=== PATIENT | male | born 1950 | race Caucasian/White ===

== ENCOUNTER → 2019-12-01 12:27 | Outpatient (CLI) | payer MEDICARE, OTHER, SELFPAY ==
--- NOTE | 2019-12-01 | DI.US.S_ITS ---
PROCEDURE: US SCROTUM INDICATIONS: OTHER SPECIFIED DISORDERSOF THE MALE GENITAL ORGANS, possible left scrotal mass. TECHNIQUE: Real-time scanning was performed of the scrotum and testicles, with image documentation. Color and pulse Doppler interrogation was performed of both testicles. COMPARISON: None. FINDINGS: Right: Testicle is normal in size at 2.1 x 3.4 x 4.8 cm, and homogenous in echotexture. Epididymis is normal in overall size and morphology. No hydrocele or varicoceles. Overlying scrotal skin is normal in thickness. Left: Testicle is normal in size at 2.0 x 3.0 x 4.1 cm, and homogeneous in echotexture. Epididymis is normal in overall size and morphology. No hydrocele or varicoceles. Overlying scrotal skin is normal in thickness. Doppler: Color and pulse Doppler demonstrate normal and symmetric arterial flow in both testicles. IMPRESSION: Normal examination, source of left sided reported scrotal mass is not seen. Dictated by: Deshaun Go M.D. on 12/01/2019 at 16:22 Approved by: Deshaun Go M.D. on 12/01/2019 at 16:23
== END ==
PROVIDERS: PCP Family Medicine; Referring Provider Urology; Visit Provider Urology
DX: N50.89 Other specified disorders of the male genital organs (principal)
CPT/HCPCS: 76870

== ENCOUNTER → 2019-12-19 11:07 | Outpatient (CLI) | payer MEDICARE, OTHER, SELFPAY ==
--- NOTE | 2019-12-19 11:12 | DI.RAD.S_ITS ---
PROCEDURE: XR ABDOMEN 1V INDICATIONS: HISTORY OF NEPHROLITHIASIS TECHNIQUE: One view of the abdomen acquired. COMPARISON: [facility], , ABDOMEN 1 VIEW, 07/21/2007, 8:53. FINDINGS: Surgical changes and devices: Right upper quadrant cholecystectomy clips. Bowel: Bowel gas pattern is normal. Soft tissues: No suspicious abdominal calcifications. Calcification projects in the right abdomen could be within colon although technically nonspecific. Visualized solid organ contours appear normal in size. Left-sided pelvic phlebolith Bones: No suspicious bony lesions. Lower lumbar spondylosis IMPRESSION: Right abdominal calcification, technically nonspecific. If clinically warranted, CT KUB could provide better characterization Dictated by: Maxwell Josue M.D. on 12/19/2019 at 12:17 Approved by: Maxwell Josue M.D. on 12/19/2019 at 12:21
== END ==
PROVIDERS: PCP Family Medicine; Referring Provider Urology; Visit Provider Urology
DX: M47.816 Spondylosis without myelopathy or radiculopathy, lumbar region (principal); Z87.442 Personal history of urinary calculi; Z90.49 Acquired absence of other specified parts of digestive tract
CPT/HCPCS: 74018

== ENCOUNTER → 2020-03-25 14:26 | Outpatient (CLI) | payer MEDICARE, OTHER, SELFPAY ==
[2020-03-26 02:52] LABS: COVID19 Sendout Not Detected (Not Detect)
== END ==
PROVIDERS: PCP Family Medicine; Visit Provider Physician Assistant
DX: Z01.812 Encounter for preprocedural laboratory examination (principal)
CPT/HCPCS: 87635

== ENCOUNTER 2020-03-28 07:40 | Day surgery (SDC) | payer MEDICARE, OTHER, SELFPAY ==
[2020-03-22 09:00] VITALS: BMI 45.8
[2020-03-28] VITALS (14 sets, daily range): BP systolic 144–194; BP diastolic 68–112; PULSE 56–79; RESP 15–93; TEMP 36.2–37.6; O2SAT 12–97; BMI 45.8
--- NOTE | 2020-03-28 | DI.RAD.S_ITS ---
PROCEDURE: XR KNEE RT 1TO2V INDICATIONS: RIGHT TORRIE TECHNIQUE: 2 view(s) of the knee acquired. COMPARISON: [facility], CR, XR KNEE ARTHRITIC SERIES BI, 08/22/2019, 15:32. FINDINGS: Bones: Patient is status post knee joint arthroplasty. Hardware components are in expected positions. Visualized bony structures are intact. Soft tissues: Overlying postoperative changes are noted. IMPRESSION: Satisfactory appearance of the right knee total arthroplasty. Dictated by: Kofi Wright M.D. on 03/28/2020 at 12:59 Approved by: Kofi Wright M.D. on 03/28/2020 at 13:00
--- NOTE | 2020-03-28 07:55 | PM.PREOP ---
Pre-operative Note COVID-19 COVID-19 status: Negative Result date/Date tested (Pos, Neg/Pending): 03/26/20 Interval Note History & Physical reviewed/Exam performed by Physician: Yes Changes to H&P: No
--- NOTE | 2020-03-28 07:56 | PM.OP.1 ---
Operative Date/Time/Diagnoses Date of procedure: 03/28/20 Time of procedure: 12:11 Pre-op diagnosis: Right knee osteoarthritis Post-op diagnosis: same Procedure & Clinicians Procedure: Right total knee arthroplasty Same procedure as scheduled: Yes Indications: The patient presents today for total knee arthroplasty after failure of conservative treatment. The nature of the procedure including the risks and benefits, alternatives, postoperative course and expected outcome were discussed and all questions answered. Consent was obtained. Operative site confirmed and marked. Surgeon: Dayton Low Assistant Paralegal: Georgette Olvera Anesthesia Type: General, Spinal and Local Operative Notes Closure Type: primary Specimen(s): none sent Prosthetic devices, grafts, tissues, transplants, or devices: Constantino and Nephew Jennifer BCS: 7 femoral component, 6 tibial component, 9 mm BCS polyethylene tray and 32 x 9 mm round patella Applied: implant(s) Estimated Blood Loss (mL): 50 Blood products transfused: none Tourniquet time (min): 67 Procedure in detail: The patient was taken to the operative suite and placed under anesthesia. The patient was given prophylactic antibiotics prior to surgery. The patient was also given tranexamic acid, 1 g, just prior to surgery for postoperative hemostasis. The lateral knee was prepped and the joint injected with 20 mL of 1% Lidocaine with epinephrine. The knee was then prepped and draped in usual sterile fashion. The leg was exsanguinated with an Esmarch dressing and the tourniquet raised to 250 torr. A 15 cm anterior incision was made. Next a medial trivector arthrotomy was made. The extensor mechanism was marked to ensure accurate repair. Initial exposing dissection was carried out medially and laterally. The knee was then flexed and the intramedullary femoral guide amber placed. The distal femoral cut was made in 6? of valgus at the +0 position. The femoral size was measured and the appropriate cutting block was then placed and the anterior, posterior and chamfer cuts made. The intramedullary tibial alignment amber was then placed. The guide was set to remove approximately 10 mm from the less affected lateral side. The proximal tibial cut was then made with an oscillating saw. All meniscus and bony debris was then removed. Posterior femoral osteophytes removed with a curved osteotome. Flexion extension gaps were checked. No specific balancing was required other than routine exposure and removal of osteophytes. The soft tissues were then injected with a combination of 20 mL of half percent Marcaine with epinephrine and 20 mL of Exparel. The trial components were then placed. The knee was then extended and the patellar thickness was measured and a cut made removing approximately 9 mm of bone. The patella was then sized and drilled. Some excess lateral bone was excised and the patellofemoral ligament released. The knee went into full extension and flexion beyond 130?. There was excellent medial-lateral balance throughout motion. Patellar tracking was excellent. The trial components were removed and the knee was cleansed with Pulsavac irrigation and dried. The final components were cemented with high viscosity vacuum mixed bone cement with antibiotics. The joint was filled with a dilute Betadine solution. The knee was held in extension and the patellar clamped until the cement was adequately cured. The knee was then irrigated. The extensor mechanism was closed with 5 interrupted #1 Vicryl sutures and a running Quill suture at approximately 90 degrees of flexion. The joint was then injected with a combination of 1 g of tranexamic acid and 20 mL of quarter percent Marcaine with epinephrine. The subcutaneous tissue was closed with 2 0 Vicryl. The skin was closed with absorbable subcuticular sutures and surgical adhesive. An eladia dressing and Jeffery wrap were then applied. The patient tolerated the procedure well and was returned to recovery room in good condition. Complications: none Post-operative Condition: stable Disposition: PACU Plan for aftercare: [facility] Protocol
--- NOTE | 2020-03-28 09:07 | SUR.PREOP ---
Assisted patient to bathroom. Ambulatory with steady gait. Awaiting surgery.
[2020-03-28] MEDS: CEFAZOLIN VIAL 3 GM in SODIUM CHLORIDE 0.9% 100 ML 200 ML IV ×2 (10:10→18:31)
--- NOTE | 2020-03-28 10:48 | SUR.OPER ---
Supine on padded OR bed. Pillow under head, arms secured on padded armboards <90 degree abduction. Safety belt across torso. Non-operative leg secured with tape over blanket over lower leg. Operative leg secured in DeMayo/Smith positioner. Foam padded brace at thigh of operative leg.
[2020-03-28] MEDS: BUPIVACAINE 0.25% W/ EPI (PF) 40 ML, BUPIVACAINE LIPOSOME 266 MG, SODIUM CHLORIDE 0.9% ... INJ (10:56)
[2020-03-28] MEDS: BUPIVACAINE 0.25% W/ EPI (PF) 20 ML, TRANEXAMIC ACID 1,000 MG, SODIUM CHLORIDE 0.9% 10 ML INJ (10:58)
[2020-03-28] MEDS: LACTATED RINGERS 1,000 ML 42 ML IV ×2 (11:10→12:37)
--- NOTE | 2020-03-28 12:34 | SUR.PHASEI ---
Patient awake but drowsy. Drinking gingerale without any nausea. Denies pain at this time.
[2020-03-28] MEDS: LACTATED RINGERS 1,000 ML 100 ML IV ×2 (13:14→23:32)
--- NOTE | 2020-03-28 13:44 | PC.NURSE ---
Addendum entered by Asiya Eubanks R.N. 03/28/20 15:44: Patients blood pressure 180s/100s consistently.. Phoned and he gave orders to have patient take all of his blood pressure medication, these have all been given. He is resting comfortably and sleeping and bp is down 162/68. Original Note: Patient to floor around 1300. He has a eladia dressing to his r.knee. Motor to eladia drain flashing green. O drainage knee dressing, shorty wrap is present. He denies pains at this time and has feeling to below his knee. He is diabetic and his blood sugar was 110 this morning. Skin clear, he has had some cellulitis to left barnett in the past. IVF infusing LR at 100cc/hr and patient is tolerating this well.
[2020-03-28] MEDS: IBUPROFEN 400 MG TABLET PO ×3 (14:01→21:17)
[2020-03-28] MEDS: ACETAMINOPHEN 325 MG TABLET 650 MG PO ×2 (14:02→21:09)
[2020-03-28] MEDS: OXYCODONE IR 10 MG TABLET PO (14:15)
[2020-03-28] MEDS: DOXAZOSIN 4 MG TABLET 8 MG PO (15:30)
[2020-03-28] MEDS: atenoloL 50 MG TABLET PO (15:30)
[2020-03-28] MEDS: FUROSEMIDE 20 MG TABLET 40 MG PO (15:30)
[2020-03-28] MEDS: AMLODIPINE 5 MG TABLET PO (15:30)
[2020-03-28] MEDS: atenoloL 25 MG TABLET 50 MG PO (15:31)
--- NOTE | 2020-03-28 16:03 | PT.IIE ---
Current Diagnoses Other specified disorders of veins (03/28/20) Bilateral primary osteoarthritis of knee (03/28/20) Surgery Performed Operation Date: 03/28/20 09:45 Actual Procedures p Total Knee Arthroplasty(Right) - Dayton Low MD Surgical History (Last Updated 03/22/20 @ 09:26 by Ariadne Cintron RN) History of eye surgery (Acute) History of vasectomy (Acute) Hx of appendectomy (Acute) Hx of cholecystectomy (Acute) Hx of left cataract extraction (Acute) Hx of tonsillectomy (Acute) Hx of umbilical hernia repair (Acute) S/P excision of lipoma (Acute) Medical History (Last Updated 03/22/20 @ 09:34 by Ariadne Cintron RN) Edema (Acute) Enlarged heart (Acute) Gout (Acute) Hearing impaired (Acute) Heartburn (Acute) HLD (hyperlipidemia) (Acute) HTN (hypertension) (Acute) Kidney stones (Acute) Left wrist fracture (Acute) SHRUTHI on CPAP (Acute) Osteoarthritis (Acute) Pre-diabetes (Acute) Seasonal allergies (Acute) Physical Therapy Inpatient Evaluation/Re-Eval M1 PT/OT-IP Prior Functional Status Start: 03/28/20 18:13 Freq: NEEDED Status: Active Protocol: Document 03/28/20 16:03 AB (Rec: 03/28/20 18:34 AB [id number]) Medical Review Prior Functional Status Medical History Reviewed Yes Communication able to make needs known Mobility and Gait pt stated that he is modified independent with all mobilities and ambulation without AD but uses a walking stick most of the time for outdoor mobility but occasionally uses his quad cane Social History Household Members spouse Living Arrangements House Number of Floors (Floors) 3 or More Floors Number of Stairs To Enter/Railing? has 2 steps with L rail and 3 steps with R rail to enter the house has 10 steps with R rail + 1/2 wall on L to get to bedroom level Home Environment High Toilet,Walk in Shower Home Equipment Front Wheel Walker,Quad Cane, Raised Toilet Seat Without Armrests,Hand Held Shower Additional Social History Comment has a walking stick pt and daughter stated that spouse will not be able to assist pt; pt's 17 y/o grandson will assist pt as long as pt needs assistance; also stated that pt can stay at his son's house which is one level but has 3 steps to enter with R rail ascending, has a walk in shower and a regular toilet. M2 PT-IP Current Condition Start: 03/28/20 18:13 Freq: NEEDED Status: Active Protocol: Document 03/28/20 16:03 AB (Rec: 03/28/20 18:34 AB [id number]) Physical Therapy Current Condition Current Condition Evaluation Date 03/28/20 Treatment Diagnosis s/p R TKA; difficulty in walking Onset Date 03/28/20 Weight Bearing Status Weight Bearing Status Weight Bear as Tolerated Allowed Weight Bearing Amount (enter % RLE WBAT or #) (%) M3 PT-IP Subjective Start: 03/28/20 18:13 Freq: NEEDED Status: Active Protocol: Document 03/28/20 16:03 AB (Rec: 03/28/20 18:34 AB [id number]) Subjective Physical Therapy Visit Type Type Initial Evaluation Visit Start Time 16:03 Visit Stop Time 17:10 Total Visit Minutes 67 Number of BOTTOM BRUSHER Visits 0 Physical Therapy Visit Comments Patient Comments agreeable to do PT Therapy Pain Assessment Pain When Pain Assessed At Rest Pain Present Pain Present Pain Reported Location Bilateral Knee Intensity 5 Scale Used Numeric (0 - 10) Pain Management Techniques Re-positioning,Timing of Activity with Medications M4 PT-IP Mobility and Gait Start: 03/28/20 18:13 Freq: NEEDED Status: Active Protocol: Document 03/28/20 16:03 AB (Rec: 03/28/20 18:34 AB [id number]) PT-Bed Mobility Assessment Supine to Sit Supine to Sit Contact Guard Assistance, Bedrails PT-Transfer Assessment Sit to and From Stand Sit to and from Stand Moderate Assistance,1 Person Assistance,Use of Upper Extremities Equipment Transfer Assistive Device Gait Belt,Front Wheeled Walker Orthotic/Prosthetic Devices or Brace: No Transfers Transfer Destination Toilet Transfer Technique ambulated using FWW Transfer Ability Level of Assist Moderate Assistance,1 Person Assistance,Use of Upper Extremities Comments Mobility Comments BP: 166/84 completed supine to sit using bed rail. pt presents difficulty completing task and requires increase time to complete. pt stated that he has a headboard that he uses to assist him with bed mobility. informed pt and daughter regarding benefit of having a bedcane. pt completed sit to stand mod A and cues. requires cues and assist for R knee stability as R knee tends to give out on pt. pt requested to use the toilet and completed ambulation using FWW mod A and cues and assist to stabilize R knee and cues for quads activation. completed sit to stand from the toilet using grab bar mod A. ambulated to the chair using FWW mod A. pt is worried about getting up from the chair. instructed pt on sit to stand techniques and completed with mod A and cues. pt agreed to sit up on chair. call light and table placed within reach. informed pt and daughter regarding stair climbing concerns and how R knee tends to give out on pt. informed pt that he might have to put a ramp in and stay at his son's house for now until he is strong enough to do steps. pt 's daughter messaged that his brother can build a ramp between today and tomorrow. set up caregiver training with pt's daughter: pt's preciouson to come in with pt's daughter at ~ 1030 to 11 am for training. Gait Assessment Gait Gait Assistance Required: Moderate Assistance Distance (Feet) 10 Able to Maintain Weight Bearing Status Yes During Gait Assistive Devices Assistive Device Gait Belt,Front Wheeled Walker Orthotic/Prosthetic Devices or Brace: No Gait Deviations General Gait Pattern Antalgic,Decreased Stride Length,Decreased Feet Clearance,Step-to Gait Factors Limiting Gait Function Factors Limiting Gait Function Decreased Activity Tolerance, Decreased Strength,Limited Range of Motion,Pain,Poor Balance,Poor Safety Awareness Comments Gait Comments pls refer to mobility section for details PT-Balance Assessment Sitting Balance and Reactions Static Sitting Balance Ability Good Dynamic Sitting Balance Ability Good Standing Balance and Reactions Static Standing Balance Ability Fair Dynamic Standing Balance Ability Poor Device Used FWW M5 PT-IP Objective Assessments Start: 03/28/20 18:13 Freq: NEEDED Status: Active Protocol: Document 03/28/20 16:03 AB (Rec: 03/28/20 18:34 AB [id number]) Orientation Orientation/Cognition Level of Alertness Alert Orientation Name,Place,Situation Language Function Ability No Deficits Noted Gross Range of Motion Lower Extremity ROM Assessment Right Impaired Impairments R knee flexion: ~ 50 deg R knee extension: lacking ~ 20 deg to neutral Strength Lower Extremity Strength Assessment Right Impaired Hip 3+/5 Knee 3-/5 Coordination Assessment Gross Coordination Gross Coordination WNL Sensation Assessment Sensation Gross Sensation WNL Muscle Tone Muscle Tone WNL Yes M6 PT-IP Treatment Start: 03/28/20 18:13 Freq: NEEDED Status: Active Protocol: Document 03/28/20 16:03 AB (Rec: 03/28/20 18:34 AB [id number]) Physical Therapy Treatment Exercises Exercises Quad Sets,Heel Slides Education Education Provided Precautions,Weight Bearing Status,Post-Op Packet,Safety M7 PT-IP Assessment and Plan Start: 03/28/20 18:13 Freq: NEEDED Status: Active Protocol: Document 03/28/20 16:03 AB (Rec: 03/28/20 18:34 AB [id number]) PT Summary Assessment and Plan Potential Rehabilitation Potential Good Status of Condition at Evaluation Evolving Summary Impairments Pain,ROM,Strength,Balance,Bed Mobility,Transfers,Gait, Activity Tolerance Assessment Summary pt s/p R TKA completed this morning. pt currently requiring mod A with mobility with (+) R knee giving out on pt requiring assist for stability and cues for quads activation. pt has steps to get into the house and appropriateness on doing stair climbing training depending on progress with R knee strength/stability. pt plans to go home with assist. Son can put a ramp in for pt but at this time does not have a ramp yet. will have to continue to assess progress. set up caregiver training tomorrow 03/29 between 1030 and 11 am. Goals Bed Mobility Goal Standby Assistance Transfer Goal Standby Assistance,Front Wheeled Walker Gait Goal Standby Assistance,Front Wheel Walker Gait Distance 150 Other Goals up/down 10 steps R rail and 2 steps L rail CGA Days to Meet Goals 5 Frequency of Treatment Frequency Of Treatment Twice a Day Treatment Plan Physical Therapy Treatment Plan Bed Mobility Training,Transfer Training,Gait Training, Therapeutic Exercise,Balance Retraining,Post Op Education, Discharge Planning,Hot or Cold Pack,Neuromuscular Re-ed, Coordination Retraining,Manual Therapy Other Recommendations and Next Treatment caregiver trainin03/29/20 1030/1100 am Recommendations To Nursing Amount of Assist Needed 1 Person Assist Discharge Recommendations PT Discharge Recommendations Home with 24/7 Assist,Home Health,SNF Rehab Other Discharge Recommendations depending on progress: SNF vs home with assist and homehealth PT Transportation Needs at Discharge Private Vehicle,Wheelchair/ Cabulance
--- NOTE | 2020-03-28 18:32 | PC.NURSE ---
ADRI Shift. pt AO, pleasant, and receptive to care. ARACELI and YAMILA wrap to right knee, +2 pitting edema bilateral LE, pt states that is his baseline. CMS in tact and lifting RLE (not against resistance). 4-6/10 pain being managed with oxy, Tylenol, and Advil. BM this AM and urinating in urinal. Up with PT and for transfers, tolerating well. Left hand infusing LR at 100ml/hr with intermittent ABX and tolerating well. pt reporting he is pre-diabetic but H&P states type 2 DM, pt states he does not check blood sugars at home. We initiated checking CBG and pt is 146 at dinner. BP was elevated at start of shift. AM shift nurse received phone orders to administer all HTN medications. BP decreased to 162/68 post-HTN medications at approximately 1600. PT worked with pt around 1640 and BP elevated to 180/102, pt denied symptoms. When PT was completed and pt rested in chair for approximately 40 minutes, I re-checked BP and pt was at 152/77. pt states he has a high tolerance for pain and reporting 4-6/10 throughout shift which is responding appropriately to PO medications. IS at bedside and pt utilizing.
[2020-03-28] MEDS: ATORVASTATIN 20 MG TABLET 40 MG PO (21:09)
[2020-03-28] MEDS: ASPIRIN EC 81 MG TABLET PO (21:09)
[2020-03-29] MEDS: IBUPROFEN 400 MG TABLET PO ×3 (01:09→08:06)
[2020-03-29] MEDS: CEFAZOLIN VIAL 3 GM in SODIUM CHLORIDE 0.9% 100 ML 200 ML IV (02:20)
[2020-03-29 05:48] LABS: Hemoglobin 13.9 g/dL (13.5-17.5)
[2020-03-29] MEDS: PANTOPRAZOLE 20 MG TABLET PO (05:59)
[2020-03-29 06:12] VITALS: BP 140/74; PULSE 96; RESP 18; TEMP 36.6; O2SAT 95
--- NOTE | 2020-03-29 07:22 | PM.PNPO.1 ---
Subjective Subjective Date Patient Seen: 03/29/20 Time Patient Seen: 07:22 Interval history: The patient is doing well. He slept well overnight. Pain is well controlled. Exam Vital Signs (past 8 hours): - 03/29/20 06:12 Temperature 97.9 F Pulse Rate 96 H Respiratory Rate 18 Blood Pressure 140/74 Pulse Oximetry 95 Oxygen Delivery Method Room Air,CPAP Oxygen Flow Rate 0 Narrative Exam Narrative: The dressing is clean and dry. Leg is neurovascularly intact. Expected swelling. Objective Labs Result Diagrams: 03/29/20 05:15 Labs: Laboratory Results - last 24 hr 03/29/20 05:15 Hgb 13.9 Hct 40.0 L Assessment & Plan Post-op Postoperative Procedures: Procedures Operation Date: 03/28/20 09:45 Actual Procedures Side Surgeon p Total Knee Arthroplasty Right Dayton Low MD Postoperative day: 1 Postoperative status narrative: The patient is progressing as expected after his total knee arthroplasty. His blood pressure control has significantly improved. Plan to discharge home today. He will resume his normal blood pressure medication. Follow-up in 2 weeks. [facility] protocol. Time Spent With Patient Time with patient: less than 15 minutes
[2020-03-29 07:40] VITALS: BP 155/79; PULSE 66; RESP 16; TEMP 37.1; O2SAT 92
[2020-03-29] MEDS: FUROSEMIDE 20 MG TABLET 40 MG PO (08:06)
[2020-03-29] MEDS: OXYCODONE IR 10 MG TABLET PO (08:07)
[2020-03-29] MEDS: ASPIRIN EC 81 MG TABLET PO (08:07)
[2020-03-29] MEDS: ACETAMINOPHEN 325 MG TABLET 650 MG PO (08:07)
[2020-03-29] MEDS: DOCUSATE 100 MG CAPSULE PO (08:07)
[2020-03-29] MEDS: allopurinoL 300 MG TABLET PO (08:08)
[2020-03-29] MEDS: IRBESARTAN 150 MG TABLET PO (08:08)
[2020-03-29] MEDS: DOXAZOSIN 4 MG TABLET 8 MG PO (08:10)
--- NOTE | 2020-03-29 08:41 | CM.DANOTE ---
Addendum entered by Charley Li LPN 03/29/20 08:58: Met with pt as planned and introduced self and role. Discussed pt's shifting d/c plan: our kids have taken over: I am now going to my son's house in [place]; only a couple of stairs and they went out and got a raised toilet seat for me. He states it is his grandson Haider and daughter Lanie who will be here for the caregiver training at about 1100. P: home to son's house in [place] today after caregiver training. INSPECTOR FILTER TIP who will see pt today is updated. Original Note: Discharge Planning/Care Management DCP: assessment: case received, EMR reviewed. DC order noted. Pt is a 69 year old male who admitted yesterday for a planned R TKA. Surgeon: Dr. Low Payer: Medicare and En[employer]. Pt did work with PT Ricarda yesterday and barrier to returning home is stairs. Ricarda plans to do caregiver training today with pt's family. Grandson will be putting in a ramp to the home. Will check in with pt now and follow prn. P: anticipate d/c later today after careiver training. OUTPT PT is planned. CM Discharge Assessment Start: 03/29/20 08:40 Freq: Status: Active Protocol: Document 03/29/20 08:40 ITV (Rec: 03/29/20 08:41 ITV [id number]) Discharge Planning Assessment Advance Directives? No History Provided By Patient,Medical Record Prior Living Arrangements House Household Members spouse Independent with ADL's Yes Is patient alert and oriented? Yes Review Status In Process Pre-Anesthesia Assessment Start: 03/22/20 09:00 Freq: Status: Active Protocol: Document 03/22/20 09:00 CAB (Rec: 03/22/20 09:43 CAB [id number]) Pre-Anesthesia Assessment PAC Comment As of 03/26/20, pre-op labs/EKG from PCP not available from surgeon. Preferred Name Beau or Braulio Patient Information Reviewed Via Phone Assessment Assessment Completed With Patient Comment Labs/EKG w/PCP 03/21/20 COVID- 19 screen 03/25/20 @ [facility]-not detected Primary Care Provider Alphonso Lehman Medical Clearance Received Yes Seen Specialist in Last 12 Months Yes Specialist Seen Orthopedist,Urologist Primary Language Persian Insole Filler Required No Height 175.26 cm Weight 140.614 kg Body Mass Index (BMI) 45.8 Hearing Ability Normal Visual Impairment No Limitations Visual Assist None Dentition Type Teeth, Natural Present,Teeth, Missing Barriers to Learning Cognitive/Verbal Other Aids No Hx Anesthesia Reactions No Hx Family Anesthesia Reaction No Hx Malignant Hyperthermia No Hx Blood Transfusions No Anesthesia Review Requested No alcohol intake former Smoking Status Former smoker Tobacco type smokeless tobacco how long ago did patient quit smoking Quit smoking/chew tobacco 15 years ago Substance Use Type does not use Pain Present Pain Reported Musculoskeletal Symptoms Abnormal Gait,Back Pain, Difficulty Walking,Joint Pain, Joint Stiffness,Myalgias History of Falling (Recent or History of Yes ) Patient is completely paralyzed or No completely immobile Prosthesis or Orthotic Device Cane Mental Status Oriented to own ability Is patient on oxygen? No Does patient have SHAH/SOB Yes Hx Sleep Apnea Yes CPAP/BIPAP use prescribed and used routinely Will Bring CPAP/BIPAP DOS Yes Currently Taking a Beta Concepcion Yes: Atenolol Can You Climb a Flight of Stairs Without No SOB Hx Chest Pain No Hx SOB Yes Hx Syncope or Dizziness No Anti-Coagulant Therapy No Has a Nursing Assoc No Cardiac Testing No Hx Pacemaker/ICD No Pacemaker Rep Required? No Cardiac Clearance Received Not Applicable Diet Type At Home Regular dysphagia No Gastrointestinal Symptoms Reflux Genitourinary Symptoms Change in Urinary Stream Bladder Pattern Frequency Urinary Catheter Present No Hx Urinary Self Catheterization No Diabetes No: Pre-diabetes HgbA1C 6.4 Hx Drug Resistant Organism No Presence of External or Internal Medical Yes: CPAP Devices Have you had any close contact with No someone diagnosed with COVID-19? Evaluation/Screening for possible COVID- Yes 19 infection completed? Marital Status Lives With spouse Prior Living Arrangements House Number of Floors (Floors) Two Floors Support System Spouse Does the Patient Have Assistance After Yes Surgery Patient Discharge Plan Description Return Home Comment Pt advised possible day surgery Feels Safe in Current Environment Yes Been Physically Hurt or Threatened By a No Person in Current Environment Do you have thoughts of harming yourself None or others? Are you currently considering suicide? No Do you have a plan to hurt yourself or No Plan others? Do You Have Any Spiritual Beliefs That No May Affect Your HC Choices? Do You Have Any Cultural Practices That No May Affect Your HC Choices? Comment Sikhism Who Can We Speak to About Patient's Care Family, friends Identifying Code for Release of Patient Declines to issue Information Health Care Proxy/Next of Kin Kailey () Health Care Proxy Emergency Contact Name Kailey () Emergency Contact Advance Directives? No Power of Line Erector No PAC Instructions Durable medical equipment, Medications to take/avoid, Nasal antibiotic,No ETOH/ petroleum product on skin DOS, Pre-surgical wash,Sensory aids ,Sturdy shoes/comfortable clothes,Do not bring valuables and remove jewelry
--- NOTE | 2020-03-29 09:09 | PC.NURSE ---
Patient is sitting up in the chair, he is one person assist. Eladia dressing is cdi with shorty wrap dressing on top of eladia. Motor to dressing is flashing green. Patients cms and pppx2. Denies any numbness or tingling to r.extremity. Patient has been discharged and will go home this mid afternoon.
[2020-03-29 09:20] VITALS: TEMP 36.4
--- NOTE | 2020-03-29 11:18 | PT.IPTN ---
Current Diagnoses Obstructive sleep apnea (adult) (pediatric) (03/28/20) Essential (primary) hypertension (03/28/20) Other specified disorders of veins (03/28/20) Unilateral primary osteoarthritis, right knee (03/28/20) Prediabetes (03/28/20) Surgery Performed Operation Date: 03/28/20 09:45 Actual Procedures p Total Knee Arthroplasty(Right) - Dayton Low MD Physical Therapy Treatment Note M2 PT-IP Current Condition Start: 03/28/20 18:13 Freq: NEEDED Status: Discharge Protocol: Document 03/28/20 16:03 AB (Rec: 03/28/20 18:34 AB [id number]) Physical Therapy Current Condition Current Condition Evaluation Date 03/28/20 Treatment Diagnosis s/p R TKA; difficulty in walking Onset Date 03/28/20 Weight Bearing Status Weight Bearing Status Weight Bear as Tolerated Allowed Weight Bearing Amount (enter % RLE WBAT or #) (%) M3 PT-IP Subjective Start: 03/28/20 18:13 Freq: NEEDED Status: Discharge Protocol: Document 03/29/20 10:33 SP (Rec: 03/29/20 14:09 SP [id number]) Subjective Physical Therapy Visit Type Type Treatment Note Visit Start Time 10:33 Visit Stop Time 11:18 Total Visit Minutes 45 Notes Daughter and grandson in room when arrived. Grandson completed caregiver training during tx, new plan to go home with him due to only 3 stairs 1 HR to manage right now than 15 total at his home. Number of PUBLIC HEALTH AIDES TEACHER Visits 1 Physical Therapy Visit Comments Patient Comments Pt agreeable to working with therapy. Therapy Pain Assessment Pain When Pain Assessed During Mobility Pain Present Pain Present Pain Reported Location Bilateral Knee Intensity 4 Scale Used R knee, improved as mobilized. Pain Management Techniques Re-positioning,Timing of Activity with Medications M4 PT-IP Mobility and Gait Start: 03/28/20 18:13 Freq: NEEDED Status: Discharge Protocol: Document 03/29/20 10:33 SP (Rec: 03/29/20 14:09 SP [id number]) PT-Transfer Assessment Sit to and From Stand Sit to and from Stand Contact Guard Assistance, Minimal Assistance,Moderate Assistance,1 Person Assistance ,Use of Upper Extremities Equipment Transfer Assistive Device Gait Belt,Front Wheeled Walker Orthotic/Prosthetic Devices or Brace: No Transfers Transfer Destination Bed,Chair,Toilet Transfer Technique ambulated using FWW Transfer Ability Level of Assist Contact Guard Assistance, Minimal Assistance,1 Person Assistance,Use of Upper Extremities Comments Mobility Comments Pt seated in chair when arrived. Pt stated will be going home with mata and only has 3 steps onto deck to enter his home with 1 HR and can use his SPC if needed. Mata completed caregiver training including donning gait belt and all physical assist required during mobility. Sit to stand from chair Mod A of 1 person, cued use of BUE on chair arms and RLE out front intially. Cued for quad facilitation decrease risk of knees buckling once in standing use of FWW for support. Pt ambulated using FWW chair to toilet 8 ft CGA then use of L grab bar (as has bathroom counter on L to use at [facility]ara cause[place] for self support) and FWW Min A to slow descend to toilet. Min A to stand grab bar and FWW. Pt ambulated to chair in hallway approx 20 ft and CGA to sit in w/c. Pt was wheeled down in w /c to stairs. Pt ascend/ descended 3 stairs R HR and SPC in LUE with CGA mata provided, cuing initally for sequencing LLE leading up/ RLE leading down with good demonstration. Pt then walked further down hallway approxx 100 ft before required seated rest due to decreased activity tolerance and strength which is further that would have to at his mata causey. Pt wheeled in w/c to room, sit to stand CGA- Min A from w/c walked further into room 15 ft using FWW to chair CGA during slow descent into chair. Pt had all needs and call light in reach before left. Gait Assessment Gait Gait Assistance Required: Contact Guard Assist Distance (Feet) 100 Able to Maintain Weight Bearing Status Yes During Gait Assistive Devices Assistive Device Gait Belt,Front Wheeled Walker Orthotic/Prosthetic Devices or Brace: No Gait Deviations General Gait Pattern Antalgic,Decreased Stride Length,Decreased Feet Clearance Factors Limiting Gait Function Factors Limiting Gait Function Decreased Activity Tolerance, Decreased Strength,Limited Range of Motion,Pain,Poor Balance Comments Gait Comments See mobility comments. Stair Climbing Assessment Evaluation Level of Assist On Stairs Contact Guard Assistance,1 Person Assistance Devices Stair Climbing Assistive Devices Straight Cane,Right Railing Technique/Endurance Stair Climbing Direction Ascend and Descend Stair Climbing Technique Step to Step Number of Steps Climbed 3 Stair Climbing Set # Repetitions (reps) 1 Comments Stair Climbing Comments See mobility comments, 3 stairs to assimulate mata' s enterance onto [employer], going to his home upon DC. PT-Balance Assessment Sitting Balance and Reactions Static Sitting Balance Ability Good Dynamic Sitting Balance Ability Good Standing Balance and Reactions Static Standing Balance Ability Fair Dynamic Standing Balance Ability Fair Device Used FWW M5 PT-IP Objective Assessments Start: 03/28/20 18:13 Freq: NEEDED Status: Discharge Protocol: Document 03/28/20 16:03 AB (Rec: 03/28/20 18:34 AB [id number]) Orientation Orientation/Cognition Level of Alertness Alert Orientation Name,Place,Situation Language Function Ability No Deficits Noted Gross Range of Motion Lower Extremity ROM Assessment Right Impaired Impairments R knee flexion: ~ 50 deg R knee extension: lacking ~ 20 deg to neutral Strength Lower Extremity Strength Assessment Right Impaired Hip 3+/5 Knee 3-/5 Coordination Assessment Gross Coordination Gross Coordination WNL Sensation Assessment Sensation Gross Sensation WNL Muscle Tone Muscle Tone WNL Yes M6 PT-IP Treatment Start: 03/28/20 18:13 Freq: NEEDED Status: Discharge Protocol: Document 03/29/20 10:33 SP (Rec: 03/29/20 14:09 SP [id number]) Physical Therapy Treatment Exercises Exercises Ankle Pumps,Seated Knee Flexion/Extension Education Education Provided Precautions,Weight Bearing Status,Post-Op Packet,Safety M7 PT-IP Assessment and Plan Start: 03/28/20 18:13 Freq: NEEDED Status: Discharge Protocol: Document 03/29/20 10:33 SP (Rec: 03/29/20 14:09 SP [id number]) PT Summary Assessment and Plan Potential Rehabilitation Potential Good Status of Condition at Evaluation Evolving Summary Impairments Pain,ROM,Strength,Balance,Bed Mobility,Transfers,Gait, Activity Tolerance Assessment Summary pt currently requiring Mod A initally sit to stand then decrease to CGA as tx progressed with mobility, cued R knee flexion during advancement for increase normal patterning. Ascend/ descend 3 stairs R HR andSPC in LUE cGA provided by mata who will assist him at his home until can manage 15 stairs to return to his home. Pt is ok to go when medically stable. Out patient rebab recommended and patient stated will call and set up for next week and understands post op exercises in the meantime. Goals Bed Mobility Goal Standby Assistance Transfer Goal Standby Assistance,Front Wheeled Walker Gait Goal Standby Assistance,Front Wheel Walker Gait Distance 150 Other Goals up/down 10 steps R rail and 2 steps L rail CGA Days to Meet Goals 5 Frequency of Treatment Frequency Of Treatment Twice a Day Treatment Plan Physical Therapy Treatment Plan Bed Mobility Training,Transfer Training,Gait Training, Therapeutic Exercise,Balance Retraining,Post Op Education, Discharge Planning,Hot or Cold Pack,Neuromuscular Re-ed, Coordination Retraining,Manual Therapy Other Recommendations and Next Treatment LE exercises, bed mobility LE Focus self with gait belt support, gait further distance, stairs has 15 to complete 1 HR before returns to his home. Recommendations To Nursing Amount of Assist Needed 1 Person Assist Discharge Recommendations PT Discharge Recommendations Home with Assistance, Outpatient PT Transportation Needs at Discharge Private Vehicle
[2020-03-29 11:30] VITALS: BP 145/67; PULSE 66; RESP 16; TEMP 36.7; O2SAT 93
== END 2020-03-29 12:46 | disposition home or self-care (01) ==
LOC: OR 11:50 → AC 11:51
PROVIDERS: PCP Family Medicine; Referring Provider Orthopaedic Surgery; Visit Provider Orthopaedic Surgery
PROC: 0SRC0JZ Replacement of Right Knee Joint with Synthetic Substitute, Open Approach (ICD-10-PCS; CPT 27447; principal; 2020-03-28 09:45)
DX: M17.11 Unilateral primary osteoarthritis, right knee (principal); I87.8 Other specified disorders of veins; I10 Essential (primary) hypertension; G47.33 Obstructive sleep apnea (adult) (pediatric); R73.03 Prediabetes
CPT/HCPCS: 27447; 36415; 73560; 82962; 85014; 85018; 97116; 97162; 97530; C1776; C9290; J0690; J2250; J2405; J2704; J3010

== ENCOUNTER 2021-11-13 11:57 | Emergency (ER) | payer MEDICARE, OTHER, SELFPAY ==
[2020-03-28 13:03] VITALS: BMI 45.8
[2021-11-13 12:23] VITALS: BP 160/73; PULSE 80; RESP 19; TEMP 36.6; O2SAT 99; BMI 46.5
[2021-11-13 12:58] LABS: COVID19 -Nasal RAPID Negative (Negative)
--- NOTE | 2021-11-13 13:41 | ED.WOUNDLAC ---
HPI - Wound/Laceration General Chief Complaint: Wound/Laceration Stated Complaint: cant walk, shaky, weak Time Seen by Provider: 11/13/21 12:52 Source: patient Mode of arrival: Family Vehicle History of Present Illness HPI narrative: Patient is a 70-year-old male. Has chronic lower extremity swelling and chronic wounds. He has had this issues for months now. Has been on antibiotics with only minimal improvement. Has a follow-up with wound care in 2 days from now. Is on diuretics but states that he only takes the diuretic when he is going to be at home because it causes him to urinate. No diagnosis of heart failure. No prior diagnosis of diabetes. Is here for evaluation because this morning he became very shaky and weak and had discomfort in his thighs with right being greater than left. Has not tried anything for the symptoms prior to arrival. Related Data Home Medications Medication Instructions Recorded Confirmed allopurinol 300 mg tablet 300 mg PO DAILY #0 02/26/10 03/28/20 aspirin 81 mg tablet,delayed 81 mg PO DAILY #0 02/26/10 03/28/20 release atenolol 50 mg tablet 50 mg PO BEDTIME #0 02/26/10 03/28/20 Resmed Airsense 10 CPAP #1 ea 02/10/19 03/29/20 amlodipine 5 mg tablet 5 mg PO BEDTIME 03/22/20 03/28/20 atorvastatin 40 mg tablet 40 mg PO BEDTIME 03/22/20 03/28/20 doxazosin 8 mg tablet 8 mg PO DAILY 03/22/20 03/28/20 furosemide 20 mg tablet 40 mg PO QAM 03/22/20 03/28/20 indomethacin 25 mg capsule 25 mg PO TID PRN 03/22/20 03/28/20 irbesartan 150 mg tablet 150 mg PO DAILY 03/22/20 03/28/20 omeprazole 20 mg capsule,delayed 20 mg PO DAILY 03/22/20 03/28/20 release Previous Rx's Medication Instructions Recorded oxycodone 5 mg tablet 5 mg PO Q4H PRN #60 tab 03/28/20 triamcinolone acetonide 0.1 % 1 applic TOPICAL BID #30 g 11/13/21 topical cream Allergies Allergy/AdvReac Type Severity Reaction Status Date / Time adhesive tape Allergy Severe Blisters, Verified 11/13/21 12:23 burn Review of Systems Constitutional Constitutional: Reports fatigue, Denies fever(s), Denies headache(s) and Reports lethargy ENT Ears, Nose, Mouth, and Throat: Denies headache(s) Cardiovascular Cardiovascular: Denies chest pain and Denies dyspnea Respiratory Respiratory: Denies dyspnea Gastrointestinal Gastrointestinal: Denies abdominal pain, Denies nausea and Denies vomiting Musculoskeletal Musculoskeletal: Reports system reviewed and no additional complaints, except as documented and Reports as per HPI Integumentary/Breasts Skin/Breast: Reports system reviewed and no additional complaints, except as documented and Reports as per HPI Neurologic Neurologic: Denies headache(s) Endocrine Endocrine: Reports fatigue Hematologic/Lymphatic On Anticoagulants: No Allergic/Immunologic Allergic/Immunologic: Reports system reviewed and no additional complaints, except as documented Patient History Medical History Edema Enlarged heart Gout Hearing impaired Heartburn HLD (hyperlipidemia) HTN (hypertension) Kidney stones Left wrist fracture SHRUTHI on CPAP Osteoarthritis Pre-diabetes Seasonal allergies Surgical History History of eye surgery History of vasectomy Hx of appendectomy Hx of cholecystectomy Hx of left cataract extraction Hx of tonsillectomy Hx of umbilical hernia repair S/P excision of lipoma Social History household members: spouse Smoking Status: Former smoker alcohol intake: former Smoking Status: Former smoker alcohol intake frequency: 0-2 drinks per day Substance Use Type: does not use Exam Initial Vital Signs Initial Vital Signs: Vital Signs Temperature 97.9 F 11/13/21 12:23 Pulse Rate 80 11/13/21 12:23 Respiratory Rate 19 11/13/21 12:23 Blood Pressure 160/73 H 11/13/21 12:23 Pulse Oximetry 99 11/13/21 12:23 HENMT Head: normal to inspection and normocephalic Resp Effort & Inspection: normal respiratory effort Cardio Rate: regular rate GI Inspection: normal to inspection Skin Other: Patient has bilateral changes of his lower extremities consistent with chronic venous stasis changes. The right lower extremity is weeping. There is erythema but it appears to be equal bilateral. No change in temperature between the 2 extremities. Neuro General: patient alert, patient awake, patient oriented x3 and moves all extremities Extrem Other: Patient with circumferential swelling bilateral lower extremities extending from his toes to his upper thighs. His upper extremities are unremarkable. Patient with some discomfort of his quadriceps muscles bilateral upper extremities. Course Orders Ordered: ED Orders 11/13/21 12:37 COVID19 -Nasal swab/Pre-Proc Stat 11/13/21 13:30 Complete Blood Count AUTO DIFF Stat Comprehensive Metabolic Panel Stat Lipase Stat NT-proBNP (BNP-Adult 18+) Stat 11/13/21 14:15 Consult to INSTITUTIONAL ASSET MANAGER - Pyrotechnics Press Tender Stat Vital Signs Vital signs: Vital Signs - 8 hr 11/13/21 12:23 11/13/21 15:26 Temperature 97.9 F Pulse Rate 80 91 H Respiratory Rate 19 Blood Pressure 160/73 H 196/88 H Pulse Oximetry 99 95 MDM - Wound/Laceration Lab Data Attestation: I reviewed the patient's lab results. Result diagrams: 11/13/21 13:30 11/13/21 13:30 Labs: Lab Results 11/13/21 11/13/21 11/13/21 Range/Units 12:37 13:30 13:30 WBC 16.9 H (4.5-11.0) X10^3/uL RBC 4.65 (4.5-5.9) X10^6/uL Hgb 14.1 (13.5-17.5) g/dL Hct 41.5 (41-53) % MCV 89.4 (80-100) fL MCH 30.3 (26-34) PG MCHC 33.9 (30-36) % RDW 14.7 (11.6-14.8) % Plt Count 163 (150-400) X10^3/uL Neut % (Auto) 90.7 H (50-75) % Lymph % (Auto) 2.4 L (25-40) % [place] % (Auto) 6.5 (3-14) % Eos % (Auto) 0.0 L (2-4) % Baso % (Auto) 0.4 (0-2) % Neut # (Auto) 18490 H (4256-5802) /uL Lymph # (Auto) 400 L (8364-8226) /uL [place] # (Auto) 1100 H (0-900) /uL Eos # (Auto) 0 (0-450) /uL Baso # (Auto) 100 (0-100) /uL Sodium 143 (137-145) mmol/L Potassium 3.8 (3.4-5.1) mmol/L Chloride 104 (98-107) mmol/L Carbon Dioxide 29 (22-32) mmol/L BUN 19 (9-20) mg/dL Creatinine 1.02 (0.66-1.25) mg/dL Estimated GFR > 60.0 (>60) mL/min BUN/Creatinine Ratio 18.6 (6-22) Glucose 175 H (80-110) mg/dL Calcium 10.0 (8.4-10.2) mg/dL Total Bilirubin 1.7 H (0.2-1.3) mg/dL AST 30 (17-59) IU/L ALT 31 (<50) IU/L Alkaline Phosphatase 79 (38-126) U/L NT-Pro-B Natriuret Pep 656 H (<125) pg/mL Total Protein 7.2 (6.3-8.2) g/dL Albumin 4.4 (3.5-5.0) g/dL Globulin 2.8 (1.7-4.1) g/dL Albumin/Globulin Ratio 1.6 (1.0-2.8) Lipase 54 (23-300) U/L SARS-CoV-2 (PCR) Negative (Negative) MDM Narrative Medical decision making narrative: The skin changes on his lower extremities her consistent with venous stasis changes. I did consider cellulitis however given his presentation and his exam the changes in lower extremities are more consistent with a dermatitis rather than a cellulitis. He has an appointment with wound care in 2 days from now. The changes in his lower extremities have been there for months. He has been on oral antibiotics in the past with only minimal if any improvement. He is afebrile. Does have a leukocytosis however there is no signs of any pneumonia, cellulitis, no urinary symptoms. No coughing. Unsure the exact etiology of this however I feel that we should hold on any antibiotics for now and have him follow-up with wound care and also his primary doctor. I did discuss the elevation in the white blood cell count with the patient and how we are going to hold on antibiotics. He was given return precautions and follow-up instructions. He expressed understanding and agreement. Discharge Plan Departure Patient Disposition: Home Clinical Impression: Stasis dermatitis Activity Restrictions/Additional Instructions: Continue to take all of your medications as directed to include your diuretic like we discussed. I do recommend that you follow-up with wound care that is scheduled for Thursday. I am going to provide you a prescription for a topical corticosteroid. This type of treatment has shown to be helpful with the dermatitis similar to what you have. Please use it as directed. If after starting this medication your symptoms worsen than stopped using the medication. You may want to discuss potentially seeing Dermatology but this is a discussion to have with the that the food safety field specialist or your primary provider. Return to the emergency department for any new or worsening symptoms. Prescriptions: New triamcinolone acetonide 0.1 % cream 1 applic topical BID Qty: 30 2RF No Action aspirin 81 mg Tablet,Delayed Release (Dr/Ec) 81 mg PO DAILY Qty: 0 0RF allopurinol 300 mg Tablet 300 mg PO DAILY Qty: 0 0RF atenolol 50 mg Tablet 50 mg PO BEDTIME Qty: 0 0RF atorvastatin 40 mg Tablet 40 mg PO BEDTIME 0RF amlodipine 5 mg Tablet 5 mg PO BEDTIME 0RF doxazosin 8 mg Tablet 8 mg PO DAILY 0RF indomethacin 25 mg Capsule 25 mg PO TID PRN (Reason: Gout flare ) 0RF omeprazole 20 mg Capsule,Delayed Release(Dr/Ec) 20 mg PO DAILY 0RF furosemide 20 mg Tablet 40 mg PO QAM 0RF irbesartan 150 mg Tablet 150 mg PO DAILY 0RF oxycodone 5 mg tablet 5 mg PO Q4H PRN (Reason: pain) Qty: 60 0RF Rx Instructions: May take 2 tabs, 10 mg, if needed. (DME) Resmed Airsense 10 CPAP Qty: 1 0RF Dose Instruction: As directed Label Comments: Pressure: 8-16 cmH2O DME: [facility] Rx Instructions: As directed Referrals: Ran Holt MD [Primary Care Provider] -
[2021-11-13 14:00] LABS: Add Manual Diff / Slide Review NO; Basophils Absolute Auto 100 /uL (0-100); Basophils Percent Auto 0.4 % (0-2); Eosinophils Absolute Auto 0 /uL (0-450); Hematocrit 41.5 % (41-53); Hemoglobin 14.1 g/dL (13.5-17.5); Lymphocytes Absolute Auto 400 /uL (1100-4500); Lymphocytes Percent Auto 2.4 % (25-40); Mean Corpuscular HGB Conc 33.9 % (30-36); Mean Corpuscular Hemoglobin 30.3 PG (26-34); Mean Corpuscular Volume 89.4 fL (80-100); Monocytes Absolute Auto 1100 /uL (0-900); Monocytes Percent Auto 6.5 % (3-14); Neutrophils Absolute Auto 15400 /uL (1500-7000); Neutrophils Percent Auto 90.7 % (50-75); Platelet Count 163 X10^3/uL (150-400); Red Blood Cell Count 4.65 X10^6/uL (4.5-5.9); Red Cell Distribution Width 14.7 % (11.6-14.8); White Blood Cell Count 16.9 X10^3/uL (4.5-11.0)
[2021-11-13 14:07] LABS: Alanine Aminotransferase 31 IU/L (<50); Albumin 4.4 g/dL (3.5-5.0); Albumin Globulin Ratio 1.6 (1.0-2.8); Alkaline Phosphatase 79 U/L (38-126); Aspartate Aminotransferase 30 IU/L (17-59); BUN Creatinine Ratio 18.6 (6-22); Bilirubin Total 1.7 mg/dL (0.2-1.3); Blood Urea Nitrogen 19 mg/dL (9-20); Carbon Dioxide 29 mmol/L (22-32); Chloride 104 mmol/L (98-107); Estimated Glomerular Filt Rate > 60.0 mL/min (>60); Globulin 2.8 g/dL (1.7-4.1); Glucose 175 mg/dL (80-110); HEMOLYSIS < 15 (0-50); Lipase 54 U/L (23-300); Potassium 3.8 mmol/L (3.4-5.1); Sodium 143 mmol/L (137-145); Total Protein 7.2 g/dL (6.3-8.2)
[2021-11-13 14:16] LABS: NT-proBNP (BNP-Adult 18+) 656 pg/mL (<125)
--- NOTE | 2021-11-13 14:48 | CM.SWNOTE ---
HAND DEICER ELEMENT WINDER Note HAND DEICER ELEMENT WINDER receives consult and enters room to meet with patient. Present with patient is patient's daughter. Patient is 70 y/o male who presents to the ED with concern for not being able to walk, being shaky and weak. Patient presents with wounds on his legs. Patient has upcoming wound care clinic appt on Thursday11/15/21. Patient endorses he is independent with ADLs at home, drives his car and uses a walking stick as needed to the mail box. Patient states that he resides at home with his . Daughter states that she checks in with her mother (Patient's ) daily and lives in [place]. HAND DEICER ELEMENT WINDER discusses the option of HH wound care and provides senior resource guide. HAND DEICER ELEMENT WINDER reviews this with ED provider who endorses that at this time patient is not acute enough for HH wound care referral and recommends that PCP and wound care clinic f/u with HH referral if higher level of care is needed. HAND DEICER ELEMENT WINDER informs patient of this and he indicates agreement and understanding. Plan: Patient to d/c to home when medically clear. Patient to f/u with wound care appt on Thursday11/15/21. Patient to f/u with PCP at upcoming appt in January. RUDY Rausch
[2021-11-13 15:26] VITALS: BP 196/88; PULSE 91; O2SAT 95
== END 2021-11-13 15:30 | disposition home or self-care (01) ==
PROVIDERS: Emergency Provider Emergency Medicine; Family Provider Family Medicine; PCP Family Medicine
DX: I87.2 Venous insufficiency (chronic) (peripheral) (principal); Z20.822 Contact with and (suspected) exposure to COVID-19
CPT/HCPCS: 36415; 80053; 83690; 83880; 85025; 87635; 99283; C9803

== ENCOUNTER → 2021-11-15 12:42 | Outpatient (CLI) | payer MEDICARE, OTHER, SELFPAY ==
[2020-03-28 13:03] VITALS: BMI 45.8
== END ==
PROVIDERS: Family Provider Family Medicine; PCP Family Medicine; Referring Provider Family Medicine; Visit Provider Family Medicine
DX: I87.2 Venous insufficiency (chronic) (peripheral) (principal); L97.812 Non-pressure chronic ulcer of other part of right lower leg with fat layer exposed; R60.0 Localized edema; E11.40 Type 2 diabetes mellitus with diabetic neuropathy, unspecified; I27.81 Cor pulmonale (chronic); I10 Essential (primary) hypertension; G47.30 Sleep apnea, unspecified; E66.9 Obesity, unspecified; Z68.42 Body mass index [BMI] 45.0-49.9, adult; Z79.84 Long term (current) use of oral hypoglycemic drugs
CPT/HCPCS: 97597; 97598; 99204; 99214

== ENCOUNTER → 2021-11-22 15:47 | Outpatient (CLI) | payer MEDICARE, OTHER, SELFPAY ==
[2020-03-28 13:03] VITALS: BMI 45.8
== END ==
PROVIDERS: Family Provider Family Medicine; PCP Family Medicine; Referring Provider Family Medicine; Visit Provider Nurse Practitioner Family
DX: I87.2 Venous insufficiency (chronic) (peripheral) (principal); L97.812 Non-pressure chronic ulcer of other part of right lower leg with fat layer exposed; R60.0 Localized edema; E11.40 Type 2 diabetes mellitus with diabetic neuropathy, unspecified; I27.81 Cor pulmonale (chronic); I10 Essential (primary) hypertension; E66.9 Obesity, unspecified; G47.30 Sleep apnea, unspecified; Z68.42 Body mass index [BMI] 45.0-49.9, adult; Z79.84 Long term (current) use of oral hypoglycemic drugs
CPT/HCPCS: 97597; 99213

== ENCOUNTER → 2021-11-29 15:06 | Outpatient (CLI) | payer MEDICARE, OTHER, SELFPAY ==
[2020-03-28 13:03] VITALS: BMI 45.8
== END ==
PROVIDERS: Family Provider Family Medicine; PCP Family Medicine; Referring Provider Orthopaedic Surgery Foot and Ankle Surgery; Visit Provider Nurse Practitioner Family
DX: I87.2 Venous insufficiency (chronic) (peripheral) (principal); L97.812 Non-pressure chronic ulcer of other part of right lower leg with fat layer exposed; R60.0 Localized edema; E11.40 Type 2 diabetes mellitus with diabetic neuropathy, unspecified; I27.81 Cor pulmonale (chronic); I10 Essential (primary) hypertension; G47.30 Sleep apnea, unspecified; E66.9 Obesity, unspecified; Z68.42 Body mass index [BMI] 45.0-49.9, adult; Z79.84 Long term (current) use of oral hypoglycemic drugs
CPT/HCPCS: 97597; 97598

== ENCOUNTER → 2021-12-13 14:48 | Outpatient (CLI) | payer MEDICARE, OTHER, SELFPAY ==
[2020-03-28 13:03] VITALS: BMI 45.8
== END ==
PROVIDERS: Family Provider Family Medicine; PCP Family Medicine; Referring Provider Family Medicine; Visit Provider Nurse Practitioner Family
DX: I87.2 Venous insufficiency (chronic) (peripheral) (principal); L97.811 Non-pressure chronic ulcer of other part of right lower leg limited to breakdown of skin; R60.0 Localized edema; E11.40 Type 2 diabetes mellitus with diabetic neuropathy, unspecified; I10 Essential (primary) hypertension; I27.81 Cor pulmonale (chronic); E66.9 Obesity, unspecified; G47.30 Sleep apnea, unspecified
CPT/HCPCS: 97597; 99213

== ENCOUNTER → 2021-12-27 14:09 | Outpatient (CLI) | payer MEDICARE, OTHER, SELFPAY ==
[2020-03-28 13:03] VITALS: BMI 45.8
== END ==
PROVIDERS: Family Provider Family Medicine; PCP Family Medicine; Referring Provider Family Medicine; Visit Provider Nurse Practitioner Family
DX: L03.115 Cellulitis of right lower limb (principal); I87.2 Venous insufficiency (chronic) (peripheral); R60.0 Localized edema; E11.40 Type 2 diabetes mellitus with diabetic neuropathy, unspecified; I10 Essential (primary) hypertension; E66.9 Obesity, unspecified; I27.81 Cor pulmonale (chronic); G47.30 Sleep apnea, unspecified; Z68.42 Body mass index [BMI] 45.0-49.9, adult
CPT/HCPCS: 99214

== ENCOUNTER → 2022-01-03 13:47 | Outpatient (CLI) | payer MEDICARE, OTHER, SELFPAY ==
[2020-03-28 13:03] VITALS: BMI 45.8
== END ==
PROVIDERS: Family Provider Family Medicine; PCP Family Medicine; Referring Provider Family Medicine; Visit Provider Nurse Practitioner Family
DX: L03.115 Cellulitis of right lower limb (principal); R60.0 Localized edema; Z87.2 Personal history of diseases of the skin and subcutaneous tissue
CPT/HCPCS: 99211; 99213